=== PATIENT | female | born 1995 | race Caucasian/White ===

== ENCOUNTER → 2020-02-16 10:30 | Outpatient (CLI) | payer OTHER, SELFPAY ==
--- NOTE | 2020-02-16 10:36 | US_ITS ---
STUDY: ABDOMINAL ULTRASOUND REASON FOR EXAM: Female, 24 years old. PARA UMBILICUS PAIN TECHNIQUE: Transabdominal ultrasound was performed with real-time and static costello scale imaging. TECHNICAL QUALITY: Adequate. COMPARISON: None. FINDINGS: Liver: The liver measures 14.6 cm. There is normal echogenicity of the liver. The bile ducts are within normal limits. There is hepatic color flow. The direction of portal flow is hepatopetal. There is no demonstrated mass lesion. Portal vein measurement: Gallbladder: Normal distended gallbladder. The gallbladder wall measures 3 mm. There is a negative sonographic Gustafson''s sign. There is no pericholecystic fluid. There are no gallstones. Common Bile Duct (C.B.D.): The common bile duct measures 2 mm. Pancreas: Normal size of the head, body and tail of the pancreas. There is normal echogenicity of the pancreas. There is no demonstrated pancreatic mass or cyst. Spleen: Normal size of the spleen. The spleen measures 12.5 cm. Right Kidney: Normal size of the right kidney. The right kidney measures 12.2 x 5.5 x 4.0 cm. Normal renal cortex. The right cortex measures 1.1 cm. There is no demonstrated renal mass or cyst. There is no right hydronephrosis, there is an extrarenal pelvis. Left Kidney: Normal size of the left kidney. The left kidney measures 12.7 x 5.5 x 4.5 cm. Normal renal cortex. The left cortex measures 1.2 cm. There is no demonstrated renal mass or cyst. There is no left hydronephrosis. Aorta: Tapers normally I.V.C.: The IVC is patent. There is no ascites. US/Abdomen Complete IMPRESSION: No suspicious sonographic findings. Electronically Signed: Jacinto Brower MD at 12:03 EDT , Service support ,
--- NOTE | 2020-02-16 10:36 | US_ITS ---
STUDY: ULTRASOUND OF THE FEMALE PELVIS - COMPLETE REASON FOR EXAM: Female, 24 years old. PARAUMBILICAL PAIN LMP: 02/10/2020 TECHNIQUE: Transabdominal TECHNICAL QUALITY: Adequate. COMPARISON: None. FINDINGS: The uterus is anteverted and is in a midline position. The uterus measures 7.2 x 4.5 x 3.1 cm. Normal uterine cervix. The endometrium measures 4.5 mm in thickness, and is hyperechoic. There is no demonstrated endometrial mass. There is no demonstrated myometrial mass. I.U.D. - The patient does not have an I.U.D. The right ovary is visualized. The right ovary measures 4 x 2.1 x 1.9 cm. There is no right ovarian cyst or ovarian mass. There is no visualized right adnexal mass or complex lesion. There is normal arterial and normal venous vascularity. The left ovary is visualized. The left ovary measures 4.5 x 2.2 x 1.9 cm. There is no left ovarian cyst or ovarian mass. There is no visualized left adnexal mass or complex lesion. There is normal arterial and normal venous vascularity. There is no fluid in the cul-de-sac. The pre void volume of the bladder was 648 ml. The post void volume of the bladder was less than 5 ml. US/Pelvic (Non ) IMPRESSION: Normal female pelvis. Electronically Signed: Jacinto Brower MD at 15:43 EDT , Service support ,
== END ==
PROVIDERS: PCP Nurse Practitioner; Referring Provider Nurse Practitioner; Visit Provider Nurse Practitioner
DX: R10.9 Unspecified abdominal pain (principal)
CPT/HCPCS: 76700; 76856

== ENCOUNTER 2021-03-21 22:34 | Inpatient (IN) | payer OTHER, SELFPAY ==
[2021-03-21 22:20] VITALS: BP 128/69; PULSE 78
[2021-03-21 22:21] VITALS: PULSE 87; O2SAT 98
[2021-03-21 22:52] VITALS: BMI 27.3
[2021-03-21 23:27] LABS: Absolute Lymphocyte Count 1.37 X10^3/uL (0.83-4.51); Absolute Neutrophil Count 8.9 X10^3/uL (2.0-7.7); Basophil# 0.03 X10^3/uL; Basophil% 0.3 % (0-1); Eosinophil# 0.04 X10^3/uL; Eosinophils% 0.3 % (0-5); Hematocrit 36.1 % (37-47); Hemoglobin 12.5 g/dL (12.0-15.0); Lymphocyte # 1.37 X10^3/ul (0.83-4.51); Lymphocyte % 11.8 % (19-41); Mean Corp Hgb Conc 34.6 g/dL (32-36); Mean Corpuscular Hgb 31.3 pg (27.0-32.0); Mean Corpuscular Volume 90.3 fL (81-99); Mean Platelet Vol. 10.9 fl (6.2-12.0); Monocyte# 1.05 X10^3/uL; NRBC Flagged by Analyzer 0 % (0-5); Neutrophil # 8.92 X10^3/uL (2.7-7.7); Neutrophil % 76.5 % (47-70); Platelet Count 177 K/mm3 (150-450); RBC Distribution Width CV 12.4 % (11.6-14.6); RBC Distribution Width SD 40.2 fl (35.1-43.9); White Blood Count 11.7 K/mm3 (4.4-11.0)
[2021-03-21 23:28] VITALS: BP 123/69; PULSE 77; PULSE 80; TEMP 36.7; O2SAT 98
[2021-03-22] VITALS (45 sets, daily range): BP systolic 101–137; BP diastolic 52–71; PULSE 60–107; RESP 16; TEMP 36–36.9; O2SAT 82–100
[2021-03-22] MEDS: Acetaminophen 500 MG Tablet PO (01:30)
--- NOTE | 2021-03-22 04:28 | NURSING ---
IV fluid bolus started at this time for pt epidural. Pt reports feeling tender and slight edema noted at IV site. Diamante Arnold RN called in to assess IV site. Decision made to replace IV.
[2021-03-22] MEDS: Lactated Ringers 500 ML 999 ML IV (04:40)
[2021-03-22] MEDS: Lactated Ringers 1,000 ML 200 ML IV (05:10)
[2021-03-22] MEDS: fentaNYL-bupivacaine (epidural) 100 ML BAG EPIDURAL (05:38)
[2021-03-22] MEDS: Oxytocin 30 units/NS 500 ml 30 UNITS/500 ML IV.SOLN IV (06:35)
--- NOTE | 2021-03-22 08:31 | HP.PCM.OB_ITS ---
HPI - General General Date of Admission: 03/21/21 HPI Narrative MARIELLE BAEZA, is a 25 F who presents at 39w5d with SROM at . Contractions irregular and mild upon admission. Admitted to labor and delivery with SROM. Maternal Data Information AVELINA Calculator Estimated Delivery Date Method Current WG Current Estimate 03/24/21 Manual 39w 6d PFSH PFSH Home Medications [id number] [] 1 tab PO DAILY 03/21/21 [History Last Taken 03/21/21 20:00] Allergy/AdvReac Type Severity Reaction Status Date / Time No Known Allergies Allergy Verified 03/21/21 22:55 Surgical History History of surgery Social History Smoking Status: Never smoker History Elective abortions Hx Para 0 Spontaneous abortions Hx # Term Pregnancies Ectopic pregnancies Hx # Pregnancies Multiple births # of living children NST FHR Rate Baby A Baseline: 135 Variability:: Minimal Accelerations:: 15 x 15 Decelerations:: None FHR Category:: Category II Uterine Activity:: Every 2-4 minutes, strong ROS Constitutional Constitutional: Reports systems reviewed and no addt'l complaints, except as documented; Denies headache(s) Eyes Eyes: Denies acute decrease in peripheral vision, blurry vision or change in vision ENT HEENT: Reports systems reviewed and no addt'l complaints, except as documented Cardiovascular Cardiovascular: Denies chest pain or dizziness Respiratory/Chest Respiratory/Chest: Denies cough, dyspnea, dyspnea on exertion, shortness of alexis ath at rest or shortness of breath with exertion Gastrointestinal Gastrointestinal: Denies abdominal pain, diarrhea, nausea or vomiting Genitourinary Genitourinary: Denies abdominal discomfort or movement Musculoskeletal Musculoskeletal: Denies limited range of motion Integumentary Integumentary: Reports systems reviewed and no addt'l complaints, except as documented Neurologic Neurologic: Reports systems reviewed and no addt'l complaints, except as documented Psychiatric Psychiatric: Reports systems reviewed and no addt'l complaints, except as docum ented Endocrine Endocrinology: Reports systems reviewed and no addt'l complaints, except as documented Hematologic/Lymphatic Hematologic/Lymphatic: Reports systems reviewed and no addt'l complaints, except as documented Allergic/Immunologic Allergic/Immunologic: Reports systems reviewed and no addt'l complaints, except as documented Vital Signs Vital Signs Vital Signs: 03/21/21 22:20 03/21/21 22:21 03/21/21 23:28 Temperature 98.1 F Temperature Source Temporal Pulse Rate 78 87 80 Blood Pressure 128/69 H 123/69 H BP Systolic 128 123 BP Diastolic 69 69 Pulse Ox 98 98 03/22/21 00:27 03/22/21 00:32 03/22/21 01:25 Temperature 97.8 F Temperature Source Temporal Pulse Rate 64 75 78 Blood Pressure 118/63 BP Systolic 118 BP Diastolic 63 Pulse Ox 98 97 03/22/21 01:28 03/22/21 01:54 03/22/21 02:21 Temperature 98.1 F Temperature Source Temporal Pulse Rate 75 85 63 Blood Pressure 118/62 BP Systolic 118 BP Diastolic 62 Pulse Ox 98 99 03/22/21 02:26 03/22/21 02:33 03/22/21 02:58 Temperature 98.1 F Temperature Source Temporal Pulse Rate 72 68 68 Blood Pressure 118/64 BP Systolic 118 BP Diastolic 64 Pulse Ox 99 100 03/22/21 03:30 03/22/21 03:35 03/22/21 03:40 Temperature 97.4 F L Temperature Source Temporal Pulse Rate 68 85 72 Blood Pressure 116/67 BP Systolic 116 BP Diastolic 67 Pulse Ox 100 98 03/22/21 04:14 03/22/21 05:22 03/22/21 05:24 Temperature Temperature Source Pulse Rate 78 86 88 Blood Pressure 120/68 BP Systolic 120 BP Diastolic 68 Pulse Ox 97 100 03/22/21 05:27 03/22/21 05:31 03/22/21 05:32 Temperature Temperature Source Pulse Rate 88 97 92 Blood Pressure 118/71 BP Systolic 118 BP Diastolic 71 Pulse Ox 100 99 03/22/21 05:34 03/22/21 05:37 03/22/21 05:39 Temperature Temperature Source Pulse Rate 107 H 82 82 Blood Pressure 136/57 H 114/58 L BP Systolic 136 114 BP Diastolic 57 58 Pulse Ox 98 03/22/21 05:42 03/22/21 05:44 03/22/21 05:47 Temperature Temperature Source Pulse Rate 84 105 H 87 Blood Pressure 112/58 L BP Systolic 112 BP Diastolic 58 Pulse Ox 99 99 03/22/21 05:49 03/22/21 05:52 03/22/21 05:55 Temperature Temperature Source Pulse Rate 90 80 102 H Blood Pressure 114/63 119/66 BP Systolic 114 119 BP Diastolic 63 66 Pulse Ox 100 03/22/21 05:57 03/22/21 05:59 03/22/21 06:00 Temperature 98.2 F Temperature Source Temporal Pulse Rate 89 87 Blood Pressure 106/63 BP Systolic 106 BP Diastolic 63 Pulse Ox 100 03/22/21 06:37 03/22/21 07:19 03/22/21 08:01 Temperature 98.4 F Temperature Source Temporal Pulse Rate 80 64 70 Blood Pressure 110/61 102/52 L 101/60 BP Systolic 110 102 101 BP Diastolic 61 52 60 Pulse Ox 100 Weight Weight: 185 lb Body Mass Index (BMI) 27.3 Physical Exam Narrative Pitocin at 6 mu's Const alert and oriented x3 General Appearance: cooperative Orientation / Consciousness: awake, oriented to person, oriented to place and oriented to time Exam Limitations: no limitations HEENT normocephalic Head and Scalp: normal to inspection, normocephalic and atraumatic Face and Sinus: normal facial exam Eyes General Eye: normal appearance of both eyes Neck full ROM Chest Chest: symmetrical chest wall rise Resp normal respiratory effort and normal air movement Auscultation: clear to auscultation bilaterally Cardio regular rate, regular rhythm, S1 normal heart sound, S2 normal heart sound, no murmurs, no rub, no gallops and no clicks GI normal to inspection, nondistended, normoactive bowel sounds and non-tender appearance of the vagina normal Bladder / Kidney Exam: no CVA tenderness Manual OB Exam: estimated gestational size appropriate, presentation cephalic, dilated 8.5, effaced 90 and station +2 Back/Spine normal ROM Extremity normal to inspection and full ROM Skin no rashes or lesions noted Neuro oriented x3, CN's II-XII intact bilaterally and moves all extremities Sensorium / Orientation: awake, alert and oriented to person Motor Exam: clonus absent Deep Tendon Reflexes: Rt Patellar (L4): 2+ and Lt Patellar (L4): 2+ Labs Labs Labs: Blood Type O POSITIVE Antibody Screen NEGATIVE Hct 36.1 % (37-47) L Hgb 12.5 g/dL (12.0-15.0) GBS negative 1hr GCT normal RPR negative RPR negative Rubella immune HBsAG negative HepCnegative HIV negative O positive Urine tox screen negative GC/CT negative COVID negative upon admission Assessment & Plan (1) COVID-19 affecting in first trimester: (2) SROM (spontaneous rupture of membranes): (3) Term : PLAN: 1. Admit to labor and deliver 2. Routine labs 3. COVID test negative 4. Pitocin for labor augmentation 5. Epidural for pain management 6. collaborative physician and updated on patient status
[2021-03-22] MEDS: Ondansetron 4 MG/2 ML Vial IV (09:06)
--- NOTE | 2021-03-22 10:08 | EX.PCM.OBRPT ---
Assessment & Plan (1) (normal spontaneous vaginal delivery): Maternal Data Information AVELINA Calculator Estimated Delivery Date Method Current WG Current Estimate 03/24/21 Manual 39w 6d Vaginal Delivery Maternal Presentation Maternal Presentation: Spontaneous Rupture of Membranes Type of Induction: Pitocin (aumgentation) Operative Information Date of Procedure: 03/22/21 Pre-Operative Diagnosis: SROM Post-Operative Diagnosis: Surgery / Procedure Performed: Spontaneous Vaginal Delivery Type of Anesthesia: Epidural Estimated Blood Loss: 200 ml Time of Delivery: 09:59 Findings Description of Procedure: Progressed to complete with strong urge to push. Epidural for pain management. of viable female infant over intact perineum, APGARS 8,9. Infant head delivered with body forthcoming. Infant placed on maternal abdomen strong cry, mouth and nares suctioned for clear secretions. Pitocin started for active third stage management. Cord clamped and cut after pulsations ceased, cut by father the baby. Placenta is delivered with expression intact Via Phu, three-vessel cord. Fundus firm and hemostasis achieved. Perineum inspected and revealed intact, no lacerations or repair required. Vaginal sweep completed by me, EBL 200 mL. Sponge and instrument count correct. Mom and baby stable, planning to breast-feed. Family bonding well. Dr. Hawk collaborative physician and notified of patient delivery. Presentation: Vertex Amniotic Membrane Rupture Type: Spontaneous Amniotic Fluid Description: Clear Placental Delivery Description: Expressed Placenta Disposition: [facility] Cord Vessel Description: 3 Vessels Cord Entanglement: Around neck x 1, loose Nuchal Cord Compression: Without compression Infant A Gender: Female (1 minute): 8 (5 minute): 9 Delayed Cord Clamping: Yes Post Vaginal Delivery Medications Given After Delivery: IV Pitocin Episiotomy Description: None Laceration: None Complication Complications: None
[2021-03-22] MEDS: Senna/Docusate Sodium 1 Tablet PO (21:02)
[2021-03-22] MEDS: Ibuprofen 600 MG Tablet PO (21:02)
[2021-03-22] MEDS: Acetaminophen 500 MG Tablet 1000 MG PO (23:51)
[2021-03-23] MEDS: Ibuprofen 600 MG Tablet PO ×2 (04:23→13:25)
[2021-03-23 04:24] VITALS: BP 108/64; PULSE 60; RESP 14; TEMP 36
[2021-03-23 07:40] VITALS: BP 107/56; PULSE 61; RESP 18; TEMP 36.6
--- NOTE | 2021-03-23 08:01 | PCM.PN.OB ---
Subjective Subjective Patient seen at bedside. Feeling good and requests discharge home today. with minimal support. Denies any pain. Ambulating and voiding without difficulty. Objective Data Objective Data Vital Signs: Vital Signs Temp Pulse Resp BP Pulse Ox 98 F 61 18 107/56 L 100 03/23/21 07:40 03/23/21 07:40 03/23/21 07:40 03/23/21 07:40 03/22/21 11:25 Oxygen Delivery Method Room Air Weight: 185 lb Body Mass Index (BMI) 27.3 Intake & Output: Intake and Output for Last 24 Hours 03/21/21 03/22/21 03/23/21 23:59 23:59 23:59 Intake Total 1602.70 / 1602.70 Output Total 1700 / 1700 Balance -97.30 / -97.30 Lab / Micro Data Result Diagrams: 03/21/21 23:00 Micro: Microbiology 03/21/21 23:00 Mucosa - Nose SARS-CoV-2 Antigen (Rapid) - Final ROS Eyes Eyes: Denies blurry vision, change in vision or spots in vision ENT HEENT: Denies dizziness or headache(s) Cardiovascular Cardiovascular: Denies abdominal pain, chest pain or dyspnea Respiratory/Chest Respiratory/Chest: Denies cough, dyspnea, shortness of breath at rest or shortness of breath with exertion Gastrointestinal Gastrointestinal: Denies abdominal pain, diarrhea or vomiting Genitourinary Genitourinary: Denies change in urinary stream, difficulty urinating or dysuria Musculoskeletal Musculoskeletal: Reports none Integumentary Integumentary: Denies rash Neurologic Neurologic: Denies dizziness, headache(s), memory loss or weakness Physical Exam Const alert and no apparent distress General Appearance: cooperative and comfortable Exam Limitations: no limitations HEENT normocephalic Eyes General Eye: normal appearance of both eyes Neck full ROM General: normal visual inspection Chest Chest: symmetrical chest wall rise Resp normal respiratory effort and normal air movement Effort and Inspection: symmetric chest movement Auscultation: clear to auscultation bilaterally Cardio regular rate and regular rhythm GI normal to inspection, nondistended, normoactive bowel sounds Back/Spine normal ROM Extremity full ROM and no calf tenderness General Extremity: normal exam except as noted Skin no rashes or lesions noted Neuro CN's II-XII intact bilaterally Psych mental status grossly normal Assessment & Plan (1) (normal spontaneous vaginal delivery): PLAN: PPD #1 Routine care support Discharge home with follow up in office
--- NOTE | 2021-03-23 08:11 | PCM.DC ---
Discharge Instructions Diet Discharge Diet: No restrictions Activity May resume sexual activity in: 6-8 weeks Weight Bearing Status: Weight bearing as tolerated Dressing / Incision Call your doctor if you observe: Fever of 101 or Higher, Inability to urinate, Using more than 1 pad per hour, Shortness of breath, Chest pain, Calf discomfort and Uncontrolled pain Follow Up Care Please Follow Up With: Shanell Segura CNM When: 2 weeks virtual visit/ 6 weeks in office Test Results: Test results from this visit will be discussed in further detail at your follow-up appointment, if applicable. Discharge Plan Admission Admit Date/Time: 03/21/21 22:34 Primary Reason for Your Visit: Attending Provider: Raysa Delatorre Primary Care Provider: Benita Lewis NP Instructions Patient Instructions: After a Vaginal , After Delivery [place] Concerns, , : Caring for Yourself Discharge Orders/Prescriptions Prescriptions: New Prenatabs FA 29-1 mg Tablet 1 tab PO DAILY@1200 Qty: 0 RF: 0 Discontinued 1 mg Tablet 1 tab PO DAILY RF: 0 Referrals / Follow Up: Benita Lewis NP, MEDICINE ASSISTANT-C [Primary Care Provider] - Disposition Disposition (needs filled in before D/C Order can be placed): Home, Self Care
[2021-03-23 13:15] VITALS: BP 107/59; PULSE 63; RESP 16; TEMP 36.9
[2021-03-23] MEDS: Acetaminophen 500 MG Tablet 1000 MG PO (17:09)
[2021-03-23 20:15] VITALS: BP 118/69; PULSE 65; RESP 16; TEMP 36.1
[2021-03-23 23:22] LABS: Hematocrit 36.6 % (37-47); Hemoglobin 12.2 g/dL (12.0-15.0); Mean Corp Hgb Conc 33.3 g/dL (32-36); Mean Corpuscular Hgb 31.6 pg (27.0-32.0); Mean Corpuscular Volume 94.8 fL (81-99); Mean Platelet Vol. 10.7 fl (6.2-12.0); Platelet Count 178 K/mm3 (150-450); RBC Distribution Width CV 12.7 % (11.6-14.6); RBC Distribution Width SD 43.4 fl (35.1-43.9); Red Blood Count 3.86 M/mm3 (4.2-5.4); White Blood Count 10.4 K/mm3 (4.4-11.0)
[2021-03-24 01:00] VITALS: BP 111/61; PULSE 69; RESP 16; TEMP 36.2
--- NOTE | 2021-03-24 06:40 | DCINST_ITS ---
Discharge Instructions Diet Discharge Diet: No restrictions Activity May resume sexual activity in: 6-8 weeks Weight Bearing Status: Weight bearing as tolerated Dressing / Incision Call your doctor if you observe: Fever of 101 or Higher, Inability to urinate, Using more than 1 pad per hour, Shortness of breath, Chest pain, Calf discomfort and Uncontrolled pain Follow Up Care Please Follow Up With: Shanell Segura CNM Test Results: Test results from this visit will be discussed in further detail at your follow-up appointment, if applicable. Discharge Plan Admission Admit Date/Time: 03/21/21 22:34 Primary Reason for Your Visit: Attending Provider: Raysa Delatorre Primary Care Provider: Benita Lewis NP Instructions Patient Instructions: After a Vaginal , After Delivery [place] Concerns, , : Caring for Yourself Discharge Orders/Prescriptions Prescriptions: New Prenatabs FA 29-1 mg Tablet 1 tab PO DAILY@1200 Qty: 0 RF: 0 Discontinued 1 mg Tablet 1 tab PO DAILY RF: 0 Referrals / Follow Up: Benita Lewis NP, [employer] [Primary Care Provider] - Disposition Disposition (needs filled in before D/C Order can be placed): Home, Self Care
--- NOTE | 2021-03-24 06:41 | PCM.PN.OB ---
Subjective Subjective Patient seen at bedside. She decided to stay yesterday for support. Desires discharge home today. Objective Data Objective Data Vital Signs: Vital Signs Temp Pulse Resp BP Pulse Ox 97.2 F L 69 16 111/61 100 03/24/21 01:00 03/24/21 01:00 03/24/21 01:00 03/24/21 01:00 03/22/21 11:25 Oxygen Delivery Method Room Air Weight: 185 lb Body Mass Index (BMI) 27.3 Intake & Output: Intake and Output for Last 24 Hours 03/22/21 03/23/21 03/24/21 23:59 23:59 23:59 Intake Total 1602.70 / 1602.70 Output Total 1700 / 1700 Balance -97.30 / -97.30 Lab / Micro Data Result Diagrams: 03/23/21 22:48 Labs: Laboratory Results - last 24 hr 03/23/21 22:48: WBC 10.4, RBC 3.86 L, Hgb 12.2, Hct 36.6 L, MCV 94.8, MCH 31.6, MCHC 33.3, RDW Std Deviation 43.4, RDW Coeff of Miladis 12.7, Plt Count 178, MPV 10.7 Micro: Microbiology 03/21/21 23:00 Mucosa - Nose SARS-CoV-2 Antigen (Rapid) - Final ROS Eyes Eyes: Denies blurry vision, change in vision or spots in vision ENT HEENT: Denies dizziness or headache(s) Cardiovascular Cardiovascular: Denies abdominal pain, chest pain or dyspnea Respiratory/Chest Respiratory/Chest: Denies cough, dyspnea, shortness of breath at rest or shortness of breath with exertion Gastrointestinal Gastrointestinal: Denies abdominal pain, diarrhea or vomiting Genitourinary Genitourinary: Denies change in urinary stream, difficulty urinating or dysuria Musculoskeletal Musculoskeletal: Reports none Integumentary Integumentary: Denies rash Neurologic Neurologic: Denies dizziness, headache(s), memory loss or weakness Physical Exam Const alert and no apparent distress General Appearance: cooperative and comfortable Exam Limitations: no limitations HEENT normocephalic Eyes General Eye: normal appearance of both eyes Neck full ROM General: normal visual inspection Chest Chest: symmetrical chest wall rise Resp normal respiratory effort and normal air movement Effort and Inspection: symmetric chest movement Auscultation: clear to auscultation bilaterally Cardio regular rate and regular rhythm GI normal to inspection, nondistended, normoactive bowel sounds Back/Spine normal ROM Extremity full ROM and no calf tenderness General Extremity: normal exam except as noted Skin no rashes or lesions noted Neuro CN's II-XII intact bilaterally Psych mental status grossly normal Assessment & Plan (1) (normal spontaneous vaginal delivery): PLAN: PPD 2 Routine care support D/C home today with follow up in office
[2021-03-24 08:30] VITALS: BP 112/59; PULSE 79; RESP 16; TEMP 36.1
[2021-03-24] MEDS: Prenatal Vits Tablet 1 TABLET PO (11:56)
[2021-03-24 14:37] VITALS: BP 100/59; PULSE 69; RESP 16; TEMP 36.3
--- NOTE | 2021-03-24 18:08 | NURSING ---
1800- discharged to courtesy room, discharge instructions given and questions answered
== END 2021-03-24 18:00 | disposition home or self-care (01) | DRG 807 ==
LOC: WPOUT 22:36 → WP 22:36
PROVIDERS: Admitting Provider Obstetrics & Gynecology; PCP Nurse Practitioner; Visit Provider Advanced Practice Midwife
DX: O42.92 Full-term premature rupture of membranes, unspecified as to length of time between rupture and onset of labor (principal); Z37.0 Single live birth; O69.81X0 Labor and delivery complicated by cord around neck, without compression, not applicable or unspecified; Z3A.39 39 weeks gestation of pregnancy; Z86.16 Personal history of COVID-19
CPT/HCPCS: 59025; 59050; 85025; 85027; 86850; 86900; 86901; 87426; 99218; J7120; G0378; J2405

== ENCOUNTER → 2023-05-10 | Outpatient (CLI) | payer OTHER, SELFPAY ==
--- NOTE | 2023-05-10 18:06 | CT_ITS ---
EXAM: CT NECK WITH INTRAVENOUS CONTRAST CLINICAL INDICATION: mass on right occipital, headaches x 6 months TECHNIQUE: Helically acquired images were obtained of the neck with intravenous contrast. This CT exam was performed using one or more of the following dose reduction techniques: automated exposure control, adjustment of the mA and/or kV according to patient size, and/or use of iterative reconstruction technique. CONTRAST: IV 75mL [id number] COMPARISON: No relevant prior studies available. FINDINGS: NASOPHARYNX: Unremarkable. SUPRAHYOID NECK: Unremarkable. Oropharynx, oral cavity, parapharyngeal space and retropharyngeal space are unremarkable. INFRAHYOID NECK: Unremarkable. The larynx, hypopharynx and supraglottis are unremarkable. SUBMANDIBULAR/PAROTID GLANDS: Unremarkable. Glands are normal in size. THYROID: Unremarkable. No enlarged or calcified nodules. BONES/JOINTS: No acute fracture. SOFT TISSUES: There is a 3 mm nodular lesion in the subcutaneous tissues over the right posterior fossa best seen on series 2 image 92. VASCULATURE: No acute findings. LYMPH NODES: Unremarkable. No lymphadenopathy. LUNG APICES: Unremarkable as visualized. CT/Soft Tissue Neck WITH Contrast IMPRESSION: Small subcutaneous nodule over the right occipital bone. No other acute abnormalities are identified. Electronically Signed: Deny Waters MD at 0:03 EDT ,
== END | disposition home or self-care (01) ==
LOC: CT 18:02
PROVIDERS: PCP Nurse Practitioner Family; Referring Provider Nurse Practitioner Family; Visit Provider Nurse Practitioner Family
DX: R59.0 Localized enlarged lymph nodes (principal)
CPT/HCPCS: 70491; Q9967

== ENCOUNTER 2024-02-26 07:49 | Inpatient (IN) | payer OTHER, SELFPAY ==
[2024-02-26] VITALS (22 sets, daily range): BP systolic 94–145; BP diastolic 60–81; PULSE 67–195; RESP 16–22; TEMP 36.3–37.2; O2SAT 88–99; BMI 27.8
[2024-02-26] MEDS: 0.9% Saline Lock 10 ML Syringe IV (08:35)
[2024-02-26 09:01] LABS: Absolute Lymphocyte Count 1.34 X10^3/uL (0.83-4.51); Absolute Neutrophil Count 13.2 X10^3/uL (2.0-7.7); Basophil# 0.04 X10^3/uL; Basophil% 0.3 % (0-1); Eosinophil# 0.04 X10^3/uL; Eosinophils% 0.3 % (0-5); Hematocrit 39.4 % (37-47); Hemoglobin 13.4 g/dL (12.0-15.0); Lymphocyte # 1.34 X10^3/ul (0.83-4.51); Lymphocyte % 8.4 % (19-41); Mean Corpuscular Hgb 31.1 pg (27.0-32.0); Mean Corpuscular Volume 91.4 fL (81-99); Mean Platelet Vol. 10.4 fl (6.2-12.0); Monocyte# 1.19 X10^3/uL; Monocyte% 7.4 % (0-10); NRBC Flagged by Analyzer 0 % (0-5); Neutrophil # 13.16 X10^3/uL (2.7-7.7); Neutrophil % 82.2 % (47-70); Platelet Count 181 K/mm3 (150-450); RBC Distribution Width CV 12.4 % (11.6-14.6); Red Blood Count 4.31 M/mm3 (4.2-5.4)
--- NOTE | 2024-02-26 12:33 | PCM.HP.OB ---
HPI - General General Date of Admission: 02/26/24 Date of Service: 02/26/24 HPI Narrative MARIELLE BAEZA, is a 28 F who presents with contractions. Maternal Data Information AVELINA Calculator Estimated Delivery Date Method Current WG Current Estimate 02/26/24 Manual 40w 0d PFSH [facility] Medical History (Updated 02/26/24 @ 12:[address] Radha Hawk MD) IBS (irritable bowel syndrome) Home Medications ?Medication ?Instructions ?Recorded ?Last Taken ?Type vits,calcium no.78-iron 1 tab PO DAILY@1200 #0 tabs 03/23/21 02/25/24 20:00 Rx fumarate-folic acid 29 mg-1 mg 1 TAB tablet (Prenatabs FA) Allergy/AdvReac Type Severity Reaction Status Date / Time No Known Allergies Allergy Verified 02/26/24 07:37 Surgical History History of surgery Social History Smoking Status: Never smoker History Elective abortions Hx Para 1 Spontaneous abortions Hx # Term Pregnancies Ectopic pregnancies Hx # Pregnancies Multiple births # of living children NST FHR Rate Baby B Uterine Activity:: Q2-3 min Assessment Assessment Detail: IA - HR was 140's-150's and overall reassuring Vital Signs Vital Signs Vital Signs: 02/26/24 07:22 02/26/24 07:22 02/26/24 07:22 Temperature 98.4 F Temperature Source Temporal Pulse Rate Respiratory Rate 20 H Blood Pressure BP Systolic BP Diastolic Pulse Ox 02/26/24 07:26 02/26/24 07:26 02/26/24 07:26 Temperature Temperature Source Temporal Pulse Rate 99 Respiratory Rate Blood Pressure 122/75 H BP Systolic 122 BP Diastolic 75 Pulse Ox 02/26/24 07:26 02/26/24 07:26 02/26/24 07:30 Temperature 99.0 F Temperature Source Pulse Rate 70 Respiratory Rate 20 H Blood Pressure BP Systolic BP Diastolic Pulse Ox 02/26/24 07:30 02/26/24 09:25 02/26/24 09:25 Temperature Temperature Source Temporal Pulse Rate Respiratory Rate 20 H Blood Pressure BP Systolic BP Diastolic Pulse Ox 98 02/26/24 09:25 02/26/24 09:29 02/26/24 09:29 Temperature 97.3 F L Temperature Source Pulse Rate 195 H Respiratory Rate Blood Pressure 109/81 H BP Systolic 109 BP Diastolic 81 Pulse Ox 02/26/24 09:29 02/26/24 10:57 02/26/24 10:57 Temperature Temperature Source Pulse Rate 124 H Respiratory Rate Blood Pressure 119/65 BP Systolic 119 BP Diastolic 65 Pulse Ox 99 02/26/24 10:57 02/26/24 11:30 02/26/24 11:56 Temperature Temperature Source Pulse Rate 98 Respiratory Rate Blood Pressure 94/71 BP Systolic 94 BP Diastolic 71 Pulse Ox 99 02/26/24 11:56 02/26/24 11:56 02/26/24 11:56 Temperature Temperature Source Temporal Pulse Rate 125 H Respiratory Rate 20 H Blood Pressure BP Systolic BP Diastolic Pulse Ox 02/26/24 11:56 02/26/24 11:57 02/26/24 11:57 Temperature 98.6 F Temperature Source Pulse Rate 95 Respiratory Rate Blood Pressure BP Systolic BP Diastolic Pulse Ox 96 Weight Weight: 188 lb 4.396 oz Body Mass Index (BMI) 27.8 Physical Exam Const alert, oriented x3 and no apparent distress Chest inspection of chest normal GI soft to palpation, non-tender and non-distended Inspection: gravid Narrative: cvx - 7/90/-1, AROM clear fluid Labs Labs Labs: Blood Type O POSITIVE Antibody Screen NEGATIVE Hct 39.4 % (37-47) Hgb 13.4 g/dL (12.0-15.0) Syphilis Total Ab Pending Rhogam given: No Assessment & Plan (1) 40 weeks gestation of : COMMENT: @ 40 weeks in labor PLAN: Admit to L&D Expectant management GBS negative EFW - less than 4500g, patient with adequate pelvis Routine care
[2024-02-26] MEDS: Oxytocin 15 Units/NS 250ml 15 UNITS/250 ML IV.SOLN 334 UNITS IV (14:08)
--- NOTE | 2024-02-26 14:16 | EX.PCM.OBRPT ---
Maternal Data Information AVELINA Calculator Estimated Delivery Date Method Current WG Current Estimate 02/26/24 Manual 40w 0d Vaginal Delivery Maternal Presentation Maternal Presentation: Active Labor Operative Information Date of Procedure: 02/26/24 Pre-Operative Diagnosis: Labor Post-Operative Diagnosis: Labor Surgery / Procedure Performed: Spontaneous Vaginal Delivery Type of Anesthesia: None Estimated Blood Loss: 300ml Findings Description of Procedure: Patient prepped & draped when C/C/+2. She pushed well to deliver the head. head gently guided to allow delivery of anterior and posterior shoulders. No excess traction placed on head. Body delivered and 3VC clamped & cut in delayed fashion. Placenta delivered with gentle traction and good uterine tone obtained. Presentation: GWEN Amniotic Membrane Rupture Type: Artificial Amniotic Fluid Description: Clear Placental Delivery Description: Expressed Placenta Disposition: [facility] Specimen(s) Removed: Placenta Cord Vessel Description: 3 Vessels Cord Entanglement: None Infant A Gender: Male (Mcrae) (1 minute): 8 (5 minute): 9 Delayed Cord Clamping: Yes Post Vaginal Delivery Medications Given After Delivery: IV Pitocin Episiotomy Description: None Laceration: None Complication Complications: None
[2024-02-26] MEDS: Oxytocin 15 Units/NS 250ml 15 UNITS/250 ML IV.SOLN 83 UNITS IV (14:40)
[2024-02-26] MEDS: Ibuprofen 600 MG Tablet PO (15:11)
[2024-02-27 00:40] VITALS: BP 107/72; PULSE 74; RESP 16; TEMP 36.5
[2024-02-27 04:54] VITALS: BP 110/73; PULSE 78; RESP 16; TEMP 36.6; O2SAT 98
[2024-02-27 08:30] VITALS: BP 110/69; PULSE 83; RESP 14; TEMP 36.6; O2SAT 99
--- NOTE | 2024-02-27 08:49 | PCM.DC.SUM ---
Providers Date of Admission: 02/26/24 Primary Care Physician: Jaki Brown HELP DESK COORDINATOR-C Reason For Visit: VAGINAL DELIVERY Diagnosis Discharge Diagnosis (1) 40 weeks gestation of : Status: Acute Code(s): Z3A.40 - 40 weeks gestation of (2) (spontaneous vaginal delivery): Status: Acute Code(s): O80 - Encounter for full-term uncomplicated delivery (3) Care and examination of lactating mother: Status: Acute Code(s): Z39.1 - Encounter for care and examination of lactating mother Medications at Discharge Home Medications vits,calcium no.78-iron fumarate-folic acid 29 mg-1 mg tablet (Prenatabs FA) 1 tab PO DAILY@1200 #0 tabs 03/23/21 ibuprofen 600 mg tablet 600 mg PO Q6H PRN PRN Pain Score 1-10 #0 tabs 02/27/24 Hospital Course Operations None Procedures None Summary of Care Provided Minutes Spent on Discharge: 15 Hospital Course: Patient had . Hospital course was uneventful. Physical Exam Narrative Patient seen at bedside. Denies pain. Ambulating and voiding without difficulty. with minimal support. Lochia is minimal. Desires discharge home. Const alert and no apparent distress General Appearance: cooperative and comfortable Exam Limitations: no limitations HEENT normocephalic Eyes General Eye: normal appearance of both eyes Neck full ROM General: normal visual inspection Chest Chest: symmetrical chest wall rise Resp normal respiratory effort and normal air movement Effort and Inspection: symmetric chest movement Auscultation: clear to auscultation bilaterally Cardio regular rate and regular rhythm GI normal to inspection, nondistended, normoactive bowel sounds Back/Spine normal ROM Extremity full ROM and no calf tenderness General Extremity: normal exam except as noted Skin no rashes or lesions noted Neuro CN's II-XII intact bilaterally Psych mental status grossly normal Weight / BMI Weight Weight: 188 lb 4.396 oz Body Mass Index (BMI) 27.8 ABG / Lab / Microbiology Data 02/26/24 08:35 Laboratory: Laboratory Results - last 24 hr 02/26/24 08:35: WBC 16.0 H, RBC 4.31, Hgb 13.4, Hct 39.4, MCV 91.4, MCH 31.1, MCHC 34.0, RDW Std Deviation 41.0, RDW Coeff of Miladis 12.4, Plt Count 181, MPV 10.4, Immature Gran % (Auto) 1.400 H, Neut % (Auto) 82.2 H, Lymph % (Auto) 8.4 L, [place] % (Auto) 7.4, Eos % (Auto) 0.3, Baso % (Auto) 0.3, Absolute Neuts (auto) 13.2 H, Absolute Lymphs (auto) 1.34, Nucleated RBC % 0, Blood Type O POSITIVE, Antibody Screen NEGATIVE D/C Instructions Discharge Diet: No restrictions May resume sexual activity in: 6-8 weeks Weight Bearing Status: Weight bearing as tolerated Call your doctor if you observe: Fever of 101 or Higher, Inability to urinate, Using more than 1 pad per hour, Shortness of breath, Chest pain, Calf discomfort and Uncontrolled pain When: 2 weeks virtual visit/ 6 weeks in office Meaningful Use Info Meaningful Use Meaningful Use Diagnoses (Choose all that apply): None applicable Ischemic Stroke Statin Dosing Therapy Reference: STATIN DOSE THERAPY REFERENCE: * Patients > 75 years receive moderate or high dose statin therapy. * Patients 75 years or YOUNGER should receive HIGH intensity statin dose unless contraindicated. You will be required to document reason for non-treatment if statin daily dose does not meet guidelines. HIGH DOSE STATIN THERAPY DAILY Atorvastatin > than or = to 40 mg Rosuvastatin > than or = to 20 mg Amlodipine + Atorvastatin > than or = to 2.5/40 mg Ezetimibe + Simvastatin 10/80 mg Simvastatin 80mg Discharge Plan Admission Admit Date/Time: 02/26/24 07:49 Primary Reason for Your Visit: Labor and Delivery Attending Provider: Radha Hawk Primary Care Provider: Jaki Brown Discharge Orders/Prescriptions Prescriptions: New ibuprofen 600 mg Tablet 600 mg PO Q6H PRN PRN (Reason: Pain Score 1-10) Qty: 0 0RF Continued Prenatabs FA 29-1 mg Tablet 1 tab PO DAILY@1200 Qty: 0 0RF Referrals / Follow Up: Jaki Brown NP-C [Primary Care Provider] - Disposition Disposition (needs filled in before D/C Order can be placed): Home, Self Care
[2024-02-27] MEDS: Ibuprofen 600 MG Tablet PO (12:42)
[2024-02-27 12:43] VITALS: BP 123/70; PULSE 61; RESP 16; TEMP 35.9
[2024-02-28 13:39] LABS: Syphilis Antibodies Non-reactive
== END 2024-02-27 16:00 | disposition home or self-care (01) | DRG 807 ==
LOC: WPOUT 07:51 → WP 07:52
PROVIDERS: Admitting Provider Obstetrics & Gynecology; PCP Nurse Practitioner Family; Referring Provider Obstetrics & Gynecology; Visit Provider Obstetrics & Gynecology
DX: O80 Encounter for full-term uncomplicated delivery (principal); Z37.0 Single live birth; Z3A.40 40 weeks gestation of pregnancy
CPT/HCPCS: 59025; 59050; 85025; 86780; 86850; 86900; 86901; 99221; A4216; G0378